=== PATIENT | female | born 1950 | race Caucasian/White ===

== ENCOUNTER → 2019-10-31 15:56 | Outpatient (REF) | payer OTHER, MEDICARE, SELFPAY | LOC: ANHLAB 15:56 | PROVIDERS: PCP Internal Medicine; Visit Provider Nurse Practitioner | DX: L57.0 Actinic keratosis (principal) | CPT/HCPCS: 88305 ==

== ENCOUNTER 2022-06-25 08:00 | Outpatient (NON) | payer MEDICARE, OTHER, SELFPAY | END 2022-06-25 08:01 | disposition home or self-care (01) | PROVIDERS: PCP Internal Medicine; Visit Provider Nurse Practitioner | DX: C44.319 Basal cell carcinoma of skin of other parts of face (principal) | CPT/HCPCS: 88305 ==

== ENCOUNTER 2022-08-03 12:38 | Outpatient (NON) | payer MEDICARE, SELFPAY | END 2022-08-03 12:39 | disposition home or self-care (01) | LOC: ANHLAB 12:39 | PROVIDERS: PCP Internal Medicine; Visit Provider Nurse Practitioner | DX: C44.319 Basal cell carcinoma of skin of other parts of face (principal) | CPT/HCPCS: 88305; 88331 ==